=== PATIENT | female | born 1945 | race Two or more races ===

== ENCOUNTER 2018-04-11 07:20 | Inpatient (IN) | payer MEDICAID ==
[~2018-04-11] VITALS: Ht 154.9 cm; Wt 48.3 kg
[2018-04-11] MEDS ORDERED: NKM (07:44)
[2018-04-11 07:51] VITALS: BP 165/76
--- NOTE | 2018-04-11 07:54 | Emergency Room Report ---
History of Present Illness General Chief Complaint: Abdominal Pain Source: Patient, Family Member Present Illness HPI This patient is accompanied by her son. Patient has a history of vertigo. She has had several episodes of vertigo in the past year. The most recent of which was 2 weeks ago. The patient had onset of vertigo yesterday. Also, there was some abdominal pain yesterday. However, there is no abdominal pain today. The patient feels better if she lays flat and closes her eyes. She has been unable to eat or function for the past 24 hours. There is been no trauma. There is no fever or chills. There is no headache or neck pain. There is no chest pain or shortness of breath. She no longer has abdominal pain. She continues to have vertigo and vomiting. She denies recent illness. She denies cough or congestion. She denies ear pain. She has no other complaints. Allergies: Coded Allergies: PENICILLINS (Verified Allergy, Unknown, 04/11/18) Patient History Past Medical History: none Social History: Denies: smoking, alcohol use, drug use Reviewed Nursing Documentation: PMH: Agreed; PSxH: Agreed Nursing Documentation-PMH Past Medical History: No Stated History Review of Systems All Other Systems: negative except mentioned in HPI Physical Exam Vital Signs Date Time Temp Pulse Resp B/P (MAP) Pulse Ox O2 Delivery O2 Flow Rate FiO2 04/11/18 07:38 97.9 120 16 190/113 96 Room Air Sp02 EP Interpretation: reviewed, normal General Appearance: no apparent distress, alert, GCS 15, non-toxic, other - More comfortable and asymptomatic laying flat with eyes closed Head: normocephalic, atraumatic Eyes: bilateral eye normal inspection, bilateral eye PERRL ENT: hearing grossly normal, normal pharynx, no angioedema, normal voice Neck: full range of motion, supple/symm/no masses Respiratory: chest non-tender, lungs clear, normal breath sounds, no respiratory distress, no retraction, no accessory muscle use, speaking full sentences Cardiovascular #1: regular rate, rhythm, no edema Gastrointestinal: normal bowel sounds, non tender, soft, non-distended, no guarding, no rebound Rectal: deferred Musculoskeletal: back normal, normal range of motion, non-tender Neurologic: alert, oriented x3, responsive, motor strength/tone normal, sensory intact, speech normal, grossly normal Psychiatric: judgement/insight normal, memory normal, mood/affect normal, no suicidal/homicidal ideation Skin: normal color, no rash, warm/dry, well hydrated Medical Decision Making Diagnostic Impression: Primary Impression: Vertigo Additional Impressions: UTI (urinary tract infection) Intractable vomiting ER Course This patient has a physical exam at presentation consistent with benign positional vertigo. Other considerations include labyrinthitis, Mnire's disease, central vertigo. The patient's symptoms are short and episodic and have been positional. There are no central neurologic findings on physical exam which is very reassuring that this is not a posterior circulation stroke and I also obtained an MRI brain as a precaution given the patient's age and the recurrences that are occurring over the past month and this showed no e/o posterior circulation CVA. Laboratory workup, EKG are unremarkable. Given the patient is found to have a urinary tract infection and has had recurrent vomiting, I felt that this patient should be admitted for IV antibiotics and IV fluids and further control of her vertigo. The patient was given return precautions and followup instructions. Laboratory Tests Test 04/11/18 08:10 04/11/18 08:39 White Blood Count 6.2 K/UL (4.8-10.8) Red Blood Count 4.63 M/UL (4.20-5.40) Hemoglobin 13.6 G/DL (12.0-16.0) Hematocrit 40.3 % (37.0-47.0) Mean Corpuscular Volume 87 FL (80-99) Mean Corpuscular Hemoglobin 29.4 PG (27.0-31.0) Mean Corpuscular Hemoglobin Concent 33.8 G/DL (32.0-36.0) Red Cell Distribution Width 11.6 % (11.6-14.8) Platelet Count 208 K/UL (150-450) Mean Platelet Volume 7.4 FL (6.5-10.1) Neutrophils (%) (Auto) 79.7 % (45.0-75.0) H Lymphocytes (%) (Auto) 14.2 % (20.0-45.0) L Monocytes (%) (Auto) 5.2 % (1.0-10.0) Eosinophils (%) (Auto) 0.2 % (0.0-3.0) Basophils (%) (Auto) 0.7 % (0.0-2.0) Sodium Level 140 MMOL/L (136-145) Potassium Level 3.7 MMOL/L (3.5-5.1) Chloride Level 104 MMOL/L (98-107) Carbon Dioxide Level 27 MMOL/L (21-32) Anion Gap 9 mmol/L (5-15) Blood Urea Nitrogen 14 mg/dL (7-18) Creatinine 0.5 MG/DL (0.55-1.30) L Estimate Glomerular Filtration Rate mL/min (>60) Glucose Level 152 MG/DL (74-106) H Lactic Acid Level 1.00 mmol/L (0.4-2.0) Calcium Level 8.7 MG/DL (8.5-10.1) Total Bilirubin 0.2 MG/DL (0.2-1.0) Aspartate Amino Transferase (AST) 15 U/L (15-37) Alanine Aminotransferase (ALT) 17 U/L (12-78) Alkaline Phosphatase 62 U/L (46-116) Total Creatine Kinase 41 U/L (26-308) Creatine Kinase MB 0.6 NG/ML (0.0-3.6) Creatine Kinase MB Relative Index 1.4 Troponin I 0.004 ng/mL (0.000-0.056) Total Protein 7.2 G/DL (6.4-8.2) Albumin 3.5 G/DL (3.4-5.0) Globulin 3.7 g/dL Albumin/Globulin Ratio 0.9 (1.0-2.7) L Urine Color Pale yellow Urine Appearance Slightly cloudy Urine pH 6.5 (4.5-8.0) Urine Specific [place] 1.015 (1.005-1.035) Urine Protein 2+ (NEGATIVE) H Urine Glucose (UA) Negative (NEGATIVE) Urine Ketones Negative (NEGATIVE) Urine Blood 4+ (NEGATIVE) H Urine Nitrite Positive (NEGATIVE) H Urine Bilirubin Negative (NEGATIVE) Urine Urobilinogen Normal MG/DL (0.0-1.0) Urine Leukocyte Esterase 3+ (NEGATIVE) H Urine RBC 20-30 /HPF (0 - 2) H Urine WBC 40-60 /HPF (0 - 2) H Urine Squamous Epithelial Cells Few /LPF (NONE/OCC) Urine Bacteria Many /HPF (NONE) H EKG Diagnostic Results Rate: normal Rhythm: NSR ST Segments: no acute changes Rhythm Strip Diag. Results EP Interpretation: yes Rate: 80's Rhythm: NSR, no PVC's, no ectopy Chest X-Ray Diagnostic Results Chest X-Ray Diagnostic Results : Chest X-Ray Ordered: Yes # of Views/Limited/Complete: 1 View Indication: Other Interpretation: no consolidation, no effusion, no pneumothorax, no acute cardiopulmonary disease Impression: No acute disease Electronically Signed by: Fariha Urbina DO Last Vital Signs Date Time Temp Pulse Resp B/P (MAP) Pulse Ox O2 Delivery O2 Flow Rate FiO2 04/11/18 07:51 93 19 Room Air 04/11/18 07:38 97.9 190/113 96 Disposition: ADMITTED INPATIENT Condition: Serious Fariha Urbina DO Apr 11, 2018 07:54
[2018-04-11] MEDS ORDERED: Meclizine 25mg tab ORAL ONE (08:15)
--- NOTE | 2018-04-11 08:15 | NUR ---
ED Nurse Note: Pt. AAOx4. ambulatory. Came in with son due abd pain on lower quadrants and dizziness since Wednesday. Per son, pt c/o n/v with clear colored emesis. Last BM was today. Soft form stool. Skin is intact. 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
[2018-04-11 08:23] LABS: BASOPHILS % (AUTO) 0.7 % (0.0-2.0); EOSINOPHILS % (AUTO) 0.2 % (0.0-3.0); HEMATOCRIT 40.3 % (37.0-47.0); HEMOGLOBIN 13.6 G/DL (12.0-16.0); LYMPHOCYTES % (AUTO) 14.2 % (20.0-45.0); MEAN CORPUSCULAR VOLUME 87 FL (80-99); MONOCYTES % (AUTO) 5.2 % (1.0-10.0); NEUTROPHILS % (AUTO) 79.7 % (45.0-75.0); PLATELET COUNT 208 K/UL (150-450); RED BLOOD COUNT 4.63 M/UL (4.20-5.40); RED CELL DISTRIBUTION WIDTH 11.6 % (11.6-14.8); WHITE BLOOD COUNT 6.2 K/UL (4.8-10.8)
[2018-04-11 08:30] LABS: ANION GAP 9 mmol/L (5-15); BLOOD UREA NITROGEN 14 mg/dL (7-18); CALCIUM 8.7 MG/DL (8.5-10.1); CARBON DIOXIDE 27 MMOL/L (21-32); CHLORIDE 104 MMOL/L (98-107); CREATININE 0.5 MG/DL (0.55-1.30); POTASSIUM 3.7 MMOL/L (3.5-5.1); SODIUM 140 MMOL/L (136-145)
--- NOTE | 2018-04-11 08:32 | NUR ---
ED Nurse Note: Xray done at the [facility]
[2018-04-11 08:43] LABS: ALANINE AMINOTRANSFERASE 17 U/L (12-78); ALBUMIN 3.5 G/DL (3.4-5.0); ALBUMIN/GLOBULIN RATIO 0.9 (1.0-2.7); ALKALINE PHOSPHATASE 62 U/L (46-116); ASPARTATE AMINO TRANSFERASE 15 U/L (15-37); BILIRUBIN,TOTAL 0.2 MG/DL (0.2-1.0); CKMB 0.6 NG/ML (0.0-3.6); CREATINE KINASE 41 U/L (26-308)
[2018-04-11 08:52] LABS: APPEARANCE,URINE SLIGHTLY CLOUDY; BILIRUBIN, URINE NEGATIVE (NEGATIVE); COLOR,URINE PALE YELLOW; GLUCOSE, URINE (UA) NEGATIVE (NEGATIVE); KETONES,URINE NEGATIVE (NEGATIVE); LEUKOCYTE ESTERASE ,URINE 3+ (NEGATIVE); NITRITE,URINE POSITIVE (NEGATIVE); PH,URINE 6.5 (4.5-8.0); PROTEIN,URINE 2+ (NEGATIVE); UROBILINOGEN,URINE NORMAL MG/DL (0.0-1.0)
--- NOTE | 2018-04-11 09:04 | NUR ---
ED Nurse Note: pt.went down to MRI
[2018-04-11] MEDS ORDERED: cefTRIAXone 1 GM in NS 55 ML IVPB ONE (09:15)
--- NOTE | 2018-04-11 09:55 | NUR ---
ED Nurse Note: KACI RUDD CALLED PIETER TWICE, THE SON TO INFORM THAT THE DOCTOR NEEDS TO SPEAK WITH HIM
--- NOTE | 2018-04-11 09:58 | NUR ---
ED Nurse Note: PATIENT CAME BACK FROM MRI
[2018-04-11 10:09] VITALS: BP 131/96
--- NOTE | 2018-04-11 10:12 | NUR ---
ED Nurse Note: PATIENT IS CALM SLEEPING ON THE BED. VSS. NO SIGNS AND SYMPTOMS OF ACUTE DISSTRES.
--- NOTE | 2018-04-11 10:47 | Diagnostic Imaging Report ---
Indication: Dizziness vertigo Technique: The head was imaged in a 1.5 Ameena magnet. Sequences obtained include sagittal and axial T1 FLAIR, axial T2 fast spin echo with fat saturation, axial T2 FLAIR, diffusion and ADC map. Comparison: None Findings: There is mild prominence of the sulci, ventricles, and basal cisterns consistent with atrophy. Mild, nonspecific T2 hyperintensity noted within white matter. This may be due to chronic small vessel disease. There is no restricted diffusion. Jasmine-white differentiation is normal. There is no mass effect, midline shift, edema, or hemorrhage. There are no abnormal extra-axial or intra-axial fluid collections. The corpus callosum and sella are unremarkable. The brainstem and cerebellum are unremarkable. Bone marrow signal within the visualized osseous structures appears age appropriate and unremarkable otherwise. Impression: No acute intracranial findings. Mild atrophy and evidence of chronic small vessel disease involving white matter tracts.
--- NOTE | 2018-04-11 11:05 | NUR ---
ED Nurse Note: TELEPHONE REPORT WAS GIVEN TO KHADRA
--- NOTE | 2018-04-11 11:15 | NUR ---
ED Nurse Note: Patient was transfered to the med surg unit by [facility]. All belongings given to the patient with the belongings list, no s/s of acute disstres.
--- NOTE | 2018-04-11 11:44 | Diagnostic Imaging Report ---
Indication: Dyspnea Comparison: None A single view chest radiograph was obtained. Findings: Lungs are clear. The heart is borderline enlarged. Bones are osteopenic. Aorta is mildly calcified. IMPRESSION: No acute disease
--- NOTE | 2018-04-11 12:00 | NUR ---
NURSE NOTES: Patient received from KACI Abreu.Doctor notified patient is on the floor. Transferred from ER via gurney. Patient not in respiratory distress, peripheral iv G20 at right antecubital, patent, dry. Bed locked, in the lowest position, call light is within reach. Will continue to monitor patient.
[2018-04-11 12:15] VITALS: BP 149/77
[2018-04-11] MEDS ORDERED: Meclizine 25mg tab ORAL PRN (13:30)
[2018-04-11 16:00] VITALS: BP 144/76
--- NOTE | 2018-04-11 18:43 | History & Physical ---
History and Physical History & Physicial dictated #[id number] Papo Munoz MD Apr 11, 2018 18:43
--- NOTE | 2018-04-11 19:32 | NUR ---
HAND-OFF: Report given to KACI France.
--- NOTE | 2018-04-11 19:35 | NUR ---
NURSE NOTES: Received report from KACI Rabago. Patient A&Ox4, Yi speaking. On room air, IV intact, patent, and saline locked. Bed in lowest position with call light in reach. Will continue with plan of care.
[2018-04-11 20:00] VITALS: BP 139/77
--- NOTE | 2018-04-11 21:15 | History and Physical Report ---
DATE OF ADMISSION: 04/11/2018 REASON FOR ADMISSION: Vertigo. HISTORY OF PRESENT ILLNESS: This is a 72-year-old female with no past medical history, who presents to the emergency room with vertigo. She states that she had vertigo last night accompanied by nausea and vomiting once. She was unable to ambulate because of the vertigo. She expresses room spinning around her. She states that dizziness is worse with movements of her head. She denies any recent URIs or hearing loss. At this time, she has no nausea or vomiting. PAST MEDICAL HISTORY: None. PAST SURGICAL HISTORY: None. SOCIAL HISTORY: The patient does not drink alcohol, use any drugs, or smoke. ALLERGIES: She has allergies to penicillin and sulfa. REVIEW OF SYSTEMS: A 12-point review of systems was negative except for pertinent positives as mentioned above. PHYSICAL EXAMINATION: VITAL SIGNS: Temperature 98.1, pulse 80, respiratory rate 18, blood pressure 144/76, O2 saturation 97% on room air. GENERAL: No acute distress. The patient is alert, awake, and oriented x3. HEENT: Normocephalic/atraumatic. NECK: Supple. No JVD. LUNGS: Clear to auscultation bilaterally. No crackles, rhonchi, or rales. CARDIOVASCULAR: Regular rate and rhythm. Normal S1, S2. ABDOMEN: Soft, nontender, and nondistended. NEUROLOGIC: The patient does not have any nystagmus with Dyer-Hallpike maneuver. LABORATORY AND DIAGNOSTIC DATA: CBC, white count 6.2, hemoglobin 13.6, and platelet count 208. BMP, sodium 140, potassium 3.7, chloride 104, CO2 is 27, BUN 14, creatinine 0.5, glucose 152. LFTs are within normal limits. Troponin is 0.004. UA has 40 to 60 white cells, 20 to 30 rbc's 3+ leukocyte esterase, 2+ protein, positive nitrites. Chest x-ray shows no acute disease. Brain MRI shows no intracranial findings. ASSESSMENT: 1. Benign positional vertigo. 2. Urinary tract infection. PLAN: 1. Admit the patient to med/surg. 2. Neurologic consult. 3. Antibiotics-ceftriaxone. 4. Meclizine 25 mg p.o. t.i.d.. 5. IV fluids. 6. DVT prophylaxis with heparin. 7. Full Code. Papo MD Tammy DR: Chuy JOB#: [id number] CC:
--- NOTE | 2018-04-11 21:30 | Consultation ---
Consult Note Consult Note NEUROLOGY CONSULTATION: Full note dictated #[id number] 72 y/o, RH, HF with PH of episodic positional vertigo for the last year and elevated BP. She was hospitalized on 04/11/18 for vertigo, abdominal pain and feeling ill with N/V. She feels much better now. She has no vertigo, abdominal pain or N/V now. ON EXAM: Disoriented to exact date and name of hosp. 05/08-0, /3-1,3 Unable to remember presidents Math/VSF impaired. Few beats of left sided nystagmus associated with vertigo lasting ~ 5 sec when she was made to sit up. Could not be reproduced. IMPRESSION: 1. BPV 2. UTI with abdominal pain N & V. REC: Rx of UTI When better - Ramirez-Daroff exercises. Trino Garcia M.D., M.S.P.H. Trino Garcia MD Apr 11, 2018 21:30
[2018-04-11] MEDS: Heparin 5000 units/ml inj SUBQ SCH (22:01)
--- NOTE | 2018-04-11 23:00 | Consultation ---
DATE OF CONSULTATION: 04/11/2018 NEUROLOGY CONSULTATION CONSULTING PHYSICIAN: Trino Garcia M.D. REQUESTING PHYSICIANS: Papo Munoz M.D. & Patel Guadalupe M.D. HISTORY: Ms. Kristin Estes is a 72-year-old, right-handed, lady, who has a relatively benign past history other than episodic positional vertigo for the last year or so and episodic elevated blood pressures. She was functioning relatively well until recently when she started to have an episode of vertigo which lasted for a little longer than it usually does. She also developed abdominal pain, a feeling of being ill, had some nausea and vomiting. As a result of that, she was brought into the [facility] Emergency Room and has since been admitted. At this point in time, she feels much better. The vertigo has resolved. The abdominal pain is almost gone and the nausea and vomiting have resolved. With regards to her vertigo, she tells me that she has been having vertiginous episodes usually when she sits up from a lying down position. The vertigo usually lasts for a few seconds but on occasion has lasted for minutes. She has not noticed any change in her hearing and she also denies any pain in the ear or other symptoms. She also denies any other neurological symptoms including headache, weakness on one side or the other, numbness on one side or the other, problems with speech, problems with language, problems with vision. PAST MEDICAL HISTORY: Significant for episodic positional vertigo, episodic elevated blood pressure. FAMILY HISTORY: Nothing significant as per the patient. PERSONAL HISTORY: Home: She lives with family. Work: She is retired housewife. Habits: There is no history of alcohol, tobacco, or illicit drug use. PRESENT MEDICATIONS: Include meclizine, ceftriaxone, heparin for DVT prophylaxis, Tylenol. PHYSICAL EXAMINATION: GENERAL: She is a well-developed, well-nourished, pleasant lady, lying in bed, in no acute distress. VITAL SIGNS: Pulse 93/minute, blood pressure 165/76 mmHg, respirations 19/minute, temperature 97.9 degrees Fahrenheit. HEAD: Normocephalic and atraumatic. NECK: No neck rigidity was observed. EENT: Examination benign. NEUROLOGIC EXAMINATION: MENTAL STATUS EXAMINATION: She was awake and alert. She was oriented to self, hospital, and April 2018. She did not know the name of the hospital and exact date. She was able to recall 3/3 words immediately, but could only remember 2/3 words in 1 minute and 3 minutes. She was unable to tell me who the present President was and who prior presidents were. Her mathematical skills were impaired. Her visuospatial function was also impaired. It is unclear as to what education level is. SPEECH: She had no dysarthria. LANGUAGE: She had no aphasia. CRANIAL NERVE EXAMINATION: II: The visual milan were intact on confrontation testing. III, IV & : External ocular movements were full and the pupils 3 mm in diameter, equal, round, regular, and reactive to light. V: She had normal facial sensations, and the temporales, masseters, and pterygoids functioned normally. VII: She had normal facial expressions and no facial asymmetry. VIII: She was able to hear well bilaterally and had no nystagmus at rest. IX: The palate moved symmetrically on phonation. X: She had no hoarseness of voice. XI: The sternocleidomastoids and trapezii functioned normally. XII: The tongue was in the midline without any fasciculations or atrophy. MOTOR SYSTEM: The tone was normal in all four extremities. Examination of muscle mass revealed no focal wasting. Examination of power revealed G 5/5 power in all muscle groups tested. SENSORY EXAMINATION: She had intact sensations to pinprick, light touch, and graphesthesia. COORDINATION: She performed well on szvejn-vq-rwdd and zjdh-iy-txep testing. On Romberg test, she swayed, but did not fall to one side or the other. REFLEXES: 1+ and bilaterally symmetrical at the biceps, triceps, brachioradialis, and knees 0 at both ankles. The plantar responses were flexor bilaterally. STANCE: She stood up with support. GAIT: She walked well with support. When she was made to sit up from the lying down position, she felt a little vertiginous. She did have a few beats of left-sided nystagmus. The entire episode of vertigo lasted for approximately 5 seconds and resolved spontaneously. When the procedure was repeated, the vertigo and nystagmus could not be reproduced. DIAGNOSTIC IMPRESSION: 1. Ms. Kristin Estes is a 72-year-old, right-handed, lady, with an approximately one-year history of episodic vertigo and episodic blood pressure elevations. She was hospitalized for an episode of vertigo that lasted longer than it normally does in her case and in addition she also had some abdominal pain, nausea and vomiting associated with a feeling of being quite ill. Since she has been in the hospital, she feels much better. 2. On neurological examination, at this time, she is disoriented to the exact date and name of the hospital, has problems with recent and remote memory, visuospatial function, higher cognitive function, although it is unclear as to what education level is. She also has a few beats of left-sided nystagmus associated with vertigo lasting approximately 5 seconds when she was made to sit up. However this could not be reproduced. 3. Laboratory data obtained thus far have revealed relatively normal CBC. A chemistry panel with a blood glucose elevated at 152. Urinalysis which reveals 3+ leukocyte esterase, 20-30 red blood cells, and 40-60 white blood cells per high-power field with many urinary bacteria. 4. The patient has had an MRI scan of the brain performed which was benign. 5. The patient's history and neurological examination are most compatible with a syndrome of benign positional vertigo. The patient also has a urinary tract infection, at this point in time, which may have been the reason for abdominal pain, nausea and vomiting. RECOMMENDATIONS: 1. Agree with management thus far. 2. Treatment of UTI with appropriate antibiotics. 3. When the patient is better, she should be taught to perform Ramirez-Daroff exercises to help her with her benign positional vertigo. Thank you for entrusting me with the care of the patient. I shall follow her with you. Trino Garcia M.D., M.S.P.H. DR: Sudha JOB#: [id number] PELON
[2018-04-12] VITALS: BP 150/72
--- NOTE | 2018-04-12 01:23 | NUR ---
HAND-OFF: Report given to KACI Miller. Patient in stable condition, sleeping.
--- NOTE | 2018-04-12 01:24 | NUR ---
NURSE NOTES: Received report from Savita RN. Patient is in bed, asleep, no distress noted, call light is within reach, bed is locked, low and alarm is on. Will continue to monitor.
[2018-04-12 04:00] VITALS: BP 130/69
[2018-04-12 06:34] LABS: BASOPHILS % (AUTO) 1.5 % (0.0-2.0); EOSINOPHILS % (AUTO) 1.4 % (0.0-3.0); HEMATOCRIT 38.7 % (37.0-47.0); LYMPHOCYTES % (AUTO) 36.3 % (20.0-45.0); MEAN CORPUSCULAR VOLUME 88 FL (80-99); MONOCYTES % (AUTO) 7.8 % (1.0-10.0); PLATELET COUNT 216 K/UL (150-450); RED BLOOD COUNT 4.42 M/UL (4.20-5.40); RED CELL DISTRIBUTION WIDTH 12.1 % (11.6-14.8); WHITE BLOOD COUNT 4.9 K/UL (4.8-10.8)
[2018-04-12 06:39] LABS: ANION GAP 5 mmol/L (5-15); BLOOD UREA NITROGEN 9 mg/dL (7-18); CALCIUM 8.8 MG/DL (8.5-10.1); CARBON DIOXIDE 30 MMOL/L (21-32); CHLORIDE 107 MMOL/L (98-107); CREATININE 0.6 MG/DL (0.55-1.30); SODIUM 142 MMOL/L (136-145)
--- NOTE | 2018-04-12 07:29 | NUR ---
HAND-OFF: Report given to Dafne CLEMONS.
--- NOTE | 2018-04-12 07:47 | NUR ---
NURSE NOTES: Received report from KACI Miller. Rounding done with outgoing nurse. Patient a/o x4 and having breakfast. Denies any pain at this time. Bed in lowest position, call light within reach. Will continue to monitor.
[2018-04-12 08:00] VITALS: BP 142/76
[2018-04-12] MEDS: cefTRIAXone 1 GM in D5W 55 ML IVPB SCH (09:01)
[2018-04-12] MEDS: Heparin 5000 units/ml inj SUBQ SCH ×2 (09:02→21:50)
--- NOTE | 2018-04-12 10:57 | NUR ---
REHAB MED PT NOTE CONSULT RECEIVED, TERESA COMPLTED, PATIENT FAMILY PRESENT, SON STATES MOM IS FINE AND THAT PATIENT NEEDS NO ASSISTANCE WITH AMBULATION AND FEELS BETTER. NO SKILLED PT NEEDS. RECOMMEND OUTPATIENT PT FOR VERTIGO REHABILITATION. NO FURTHER NEEDS. CHARLOTTE BROWN PT DPT Addendum: 04/12/18 at 1057 by CHARLOTTE BROWN PT Amended: Links added.
[2018-04-12 12:00] VITALS: BP 135/70
--- NOTE | 2018-04-12 13:47 | Cardiology Report ---
APPROVED REPORT EKG Measurement Heart [id number] Normal sinus rhythm Normal ECG
[2018-04-12 16:00] VITALS: BP 139/73
[2018-04-12] MEDS ORDERED: NS 500ML ONE (17:05)
[2018-04-12] MEDS ORDERED: Tubing IV Secondary IV ONE (17:05)
--- NOTE | 2018-04-12 18:49 | NUR ---
CASE MANAGEMENT: REVIEW 72/F PRESENTED TO ED FROM HOME CC: ABD PAIN SI: PYELONEPHRITIS . INTRACTABLE VOMITING . VERTIGO T 97.9 HR 120 RR 16 BP 190/113 SAT 96% ROOM AIR UA: PROTEIN 2+ BLOOD 4+ NITRITE POSITIVE LEUKOCYTE ESTERASE 3+ STERLING MANY IS: ZOFRAN IV X1 NS IVF BOLUS X1 ANTIVERT PO X1 CEFTRIAXONE IV X1 PATIENT ADMITTED TO MED/SURG UNIT 04/11/2018 DCP: PATIENT IS FROM HOME
--- NOTE | 2018-04-12 19:37 | NUR ---
NURSE NOTES:Patient received slava FORREST R.N. patient in bed A/A/OX4. patient denies any pain at this time , no s/s of distress noted / LAC g# 20 H/L Patent and intact family at bed side. boom ( son) to call if patient to be discharge by tomorrow . call light within reach . bed in low position at all times . will continue to monitor .
--- NOTE | 2018-04-12 19:37 | NUR ---
HAND-OFF: Report given to SHIRA Londono.
[2018-04-12 20:00] VITALS: BP 119/65
--- NOTE | 2018-04-12 20:28 | Neurology Progress Note ---
Interim History Interim History Interim History Ms. Kevin Estes feels better. She has had no vertigo or dizziness today. She denies any new neurologic symptoms. She specifically denies any weakness, numbness, visual problems, language problems or memory problems. She says she ate well and had no nausea or vomiting. Review of Systems Neuro Review of Systems Benign. Objective Physical Exam Last Vital Signs Date Time Temp Pulse Resp B/P (MAP) Pulse Ox O2 Delivery O2 Flow Rate FiO2 04/12/18 16:00 97.3 77 18 139/73 (95) 100 04/12/18 09:00 Room Air Laboratory Tests Test 04/12/18 05:55 White Blood Count 4.9 K/UL (4.8-10.8) Red Blood Count 4.42 M/UL (4.20-5.40) Hemoglobin 13.0 G/DL (12.0-16.0) Hematocrit 38.7 % (37.0-47.0) Mean Corpuscular Volume 88 FL (80-99) Mean Corpuscular Hemoglobin 29.4 PG (27.0-31.0) Mean Corpuscular Hemoglobin Concent 33.6 G/DL (32.0-36.0) Red Cell Distribution Width 12.1 % (11.6-14.8) Platelet Count 216 K/UL (150-450) Mean Platelet Volume 7.6 FL (6.5-10.1) Neutrophils (%) (Auto) 53.0 % (45.0-75.0) Lymphocytes (%) (Auto) 36.3 % (20.0-45.0) Monocytes (%) (Auto) 7.8 % (1.0-10.0) Eosinophils (%) (Auto) 1.4 % (0.0-3.0) Basophils (%) (Auto) 1.5 % (0.0-2.0) Sodium Level 142 MMOL/L (136-145) Potassium Level 4.0 MMOL/L (3.5-5.1) Chloride Level 107 MMOL/L (98-107) Carbon Dioxide Level 30 MMOL/L (21-32) Anion Gap 5 mmol/L (5-15) Blood Urea Nitrogen 9 mg/dL (7-18) Creatinine 0.6 MG/DL (0.55-1.30) Estimat Glomerular Filtration Rate mL/min (>60) Glucose Level 106 MG/DL (74-106) Calcium Level 8.8 MG/DL (8.5-10.1) Neurologic Exam Objective PHYSICAL EXAMINATION: GENERAL: She is a well-developed, well-nourished, pleasant lady, lying in bed, in no acute distress. HEAD: Normocephalic and atraumatic. NECK: No neck rigidity was observed. EENT: Examination benign. NEUROLOGIC EXAMINATION: MENTAL STATUS EXAMINATION: She was awake and alert. She was oriented to self, hospital, and April 2018. She did not know the name of the hospital and exact date. She was able to recall 3/3 words immediately, but could only remember 2/3 words in 1 minute and 3 minutes. She was unable to tell me who the present President was and who prior presidents were. Her mathematical skills were impaired. Her visuospatial function was also impaired. It is unclear as to what education level is. SPEECH: She had no dysarthria. LANGUAGE: She had no aphasia. CRANIAL NERVE EXAMINATION: II: The visual milan were intact on confrontation testing. III, IV & : External ocular movements were full and the pupils 3 mm in diameter, equal, round, regular, and reactive to light. V: She had normal facial sensations, and the temporales, masseters, and pterygoids functioned normally. VII: She had normal facial expressions and no facial asymmetry. VIII: She was able to hear well bilaterally and had no nystagmus. IX: The palate moved symmetrically on phonation. X: She had no hoarseness of voice. XI: The sternocleidomastoids and trapezii functioned normally. XII: The tongue was in the midline without any fasciculations or atrophy. MOTOR SYSTEM: The tone was normal in all four extremities. Examination of muscle mass revealed no focal wasting. Examination of power revealed G 5/5 power in all muscle groups tested. SENSORY EXAMINATION: She had intact sensations to pinprick, light touch, and graphesthesia. COORDINATION: She performed well on [id number] and [id number]-[id number] testing. On Romberg test, she swayed, but did not fall to one side or the other. REFLEXES: 1+ and bilaterally symmetrical at the biceps, triceps, brachioradialis , and knees 0 at both ankles. The plantar responses were flexor bilaterally. STANCE: She stood up independently. GAIT: She walked well independently. Impression/Recommendations Diagnostic Impression 1. Ms. Kristin Estes is a 72-year-old, right-handed, lady , with an approximately one-year history of episodic vertigo and episodic blood pressure elevations. She was hospitalized for an episode of vertigo that lasted longer than it normally does in her case and in addition she also had some abdominal pain, nausea and vomiting associated with a feeling of being quite ill. Since she has been in the hospital, she feels much better. 2. She feels better. She has had no vertigo or dizziness today. She denies any new neurologic symptoms. She specifically denies any weakness, numbness, visual problems, language problems or memory problems. She says she ate well and had no nausea or vomiting. 3. On neurological examination, at this time, she is disoriented to the exact date and name of the hospital, has problems with recent and remote memory, visuospatial function, higher cognitive function, although it is unclear as to what education level is. She has no nystagmus or vertigo. 4. Laboratory data on my initial evaluation revealed relatively normal CBC. A chemistry panel with a blood glucose elevated at 152. Urinalysis which reveals 3+ leukocyte esterase, 20-30 red blood cells, and 40-60 white blood cells per high-power field with many urinary bacteria. 5. The patient has had an MRI scan of the brain performed which was benign. 6. The patient's history and neurological examination are most compatible with a syndrome of benign positional vertigo. The patient also has a urinary tract infection, at this point in time, which may have been the reason for abdominal pain, nausea and vomiting. Recommendations 1. Continue present management. 2. Treatment of UTI with appropriate antibiotics. 3. When the patient is better, she should be taught to perform Ramirez-Daroff exercises to help her with her benign positional vertigo. Trino Garcia M.D., M.S.P.H. Trino Garcia MD Apr 12, 2018 20:28
--- NOTE | 2018-04-12 22:11 | Internal Med Progress Note ---
Subjective Physician Name Papo Munoz Attending Physician Papo Munoz MD Current Medications Medications (Trade) Dose Ordered Sig/Natali Route PRN Reason Start Time Stop Time Status Last Admin Dose Admin Acetaminophen (Tylenol) 650 mg Q4H PRN ORAL Mild Pain (Pain Scale 1-3) 04/11/18 13:15 05/11/18 13:14 04/11/18 14:09 Ceftriaxone Sodium 1 gm/ Dextrose 55 ml @ 110 mls/hr DAILY IVPB 04/12/18 09:00 04/19/18 08:59 04/12/18 09:01 Dextrose (Dextrose 50%) 25 ml Q30M PRN IV Hypoglycemia 04/11/18 13:15 05/11/18 13:14 Dextrose (Dextrose 50%) 50 ml Q30M PRN IV Hypoglycemia 04/11/18 13:15 05/11/18 13:14 Heparin Sodium (Porcine) (Heparin 5000 units/ml) 5,000 units EVERY 12 HOURS SUBQ 04/11/18 21:00 05/11/18 20:59 04/12/18 21:50 Meclizine HCl (Antivert) 25 mg TID ORAL 04/14/18 18:00 05/14/18 17:59 Allergies: Coded Allergies: PENICILLINS (Verified Allergy, Unknown, 04/11/18) All Systems: reviewed and negative except above - vertigo Objective Last Vital Signs Date Time Temp Pulse Resp B/P (MAP) Pulse Ox O2 Delivery O2 Flow Rate FiO2 04/12/18 20:51 Room Air 04/12/18 20:00 98.2 78 18 119/65 (83) 95 Laboratory Tests Test 04/12/18 05:55 White Blood Count 4.9 K/UL (4.8-10.8) Red Blood Count 4.42 M/UL (4.20-5.40) Hemoglobin 13.0 G/DL (12.0-16.0) Hematocrit 38.7 % (37.0-47.0) Mean Corpuscular Volume 88 FL (80-99) Mean Corpuscular Hemoglobin 29.4 PG (27.0-31.0) Mean Corpuscular Hemoglobin Concent 33.6 G/DL (32.0-36.0) Red Cell Distribution Width 12.1 % (11.6-14.8) Platelet Count 216 K/UL (150-450) Mean Platelet Volume 7.6 FL (6.5-10.1) Neutrophils (%) (Auto) 53.0 % (45.0-75.0) Lymphocytes (%) (Auto) 36.3 % (20.0-45.0) Monocytes (%) (Auto) 7.8 % (1.0-10.0) Eosinophils (%) (Auto) 1.4 % (0.0-3.0) Basophils (%) (Auto) 1.5 % (0.0-2.0) Sodium Level 142 MMOL/L (136-145) Potassium Level 4.0 MMOL/L (3.5-5.1) Chloride Level 107 MMOL/L (98-107) Carbon Dioxide Level 30 MMOL/L (21-32) Anion Gap 5 mmol/L (5-15) Blood Urea Nitrogen 9 mg/dL (7-18) Creatinine 0.6 MG/DL (0.55-1.30) Estimat Glomerular Filtration Rate mL/min (>60) Glucose Level 106 MG/DL (74-106) Calcium Level 8.8 MG/DL (8.5-10.1) Microbiology Date/Time Source Procedure Growth Status 04/11/18 08:00 Blood Blood Culture - Preliminary Resulted 04/11/18 08:39 Urine,Clean Catch Urine Culture - Preliminary Gram Negative Bacillus 1 Resulted Intake and Output 04/11/18 04/12/18 18:59 06:59 Intake Total 640 ml 240 ml Output Total 0 ml Balance 640 ml 240 ml Intake Oral 640 ml Other 240 ml Output Urine Total 0 ml # Bowel Movements 1 Objective GENERAL: No acute distress. The patient is alert, awake, and oriented x3. HEENT: Normocephalic/atraumatic. NECK: Supple. No JVD. LUNGS: Clear to auscultation bilaterally. No crackles, rhonchi, or rales. CARDIOVASCULAR: Regular rate and rhythm. Normal S1, S2. ABDOMEN: Soft, nontender, and nondistended. NEUROLOGIC: The patient does not have any nystagmus with Jerrica-Hallpike maneuver. Assessment/Plan Assessment/Plan ASSESSMENT: 1. Benign positional vertigo. 2. Urinary tract infection. PLAN: 1. med/surg. 2. Neurologic consult. 3. Antibiotics-ceftriaxone. 4. Meclizine 25 mg p.o. t.i.d.. 5. IV fluids. 6. DVT prophylaxis with heparin. 7. Full Code. Papo Munoz MD Apr 12, 2018 22:11
[2018-04-13] VITALS: BP 134/69
[2018-04-13 04:00] VITALS: BP 112/65
[2018-04-13 08:00] VITALS: BP 115/60
--- NOTE | 2018-04-13 08:06 | NUR ---
Received patient from [facility], patient is resting in bed, no distress noted, bed is locked and in lowest position, call light within reach, will continue to monitor.
[2018-04-13] MEDS: cefTRIAXone 1 GM in D5W 55 ML IVPB SCH (09:27)
[2018-04-13] MEDS: Heparin 5000 units/ml inj SUBQ SCH (09:52)
[2018-04-13 12:00] VITALS: BP 114/76
--- NOTE | 2018-04-13 12:06 | Discharge Summary ---
Discharge Summary Hospital Course Date of Admission Apr 11, 2018 at 09:27 Date of Discharge Admitting Diagnosis pyelonephritis, intractable vomiting, vertigo HPI Kely Estes is a 72 year old female who was admitted on Apr 11, 2018 at 09:27 for UTI and Vertigo. Started on Meclizine TID and Ceftriaxone for Vertigo and UTI respectively. Seen by Neuro (Dr. Garcia). MRI brain unrevealing Stable for dc now (no vertigo). Discharge Medications New Medications: Cephalexin* (Keflex*) 500 Mg Capsule 500 MG ORAL EVERY 12 HOURS, #6 CAP 0 Refills Meclizine Hcl* (Meclizine*) 25 Mg Tablet 25 MG ORAL TID for 10 Days, #30 TAB Discontinued Medications: No Known Medications* (NKM - No Known Medications*) . 0 ., 0 Refills Discharge Condition Upon Discharge: stable Discharge Disposition Patient was discharged to HOME Discharge Diagnoses: (1) UTI (urinary tract infection) (2) Vertigo Papo Munoz MD Apr 13, 2018 12:06
[2018-04-13] MEDS ORDERED: CEPHALEXIN500 MG ORAL (12:07)
[2018-04-13] MEDS ORDERED: MECLIZINE HCL25 MG ORAL (12:07)
[2018-04-13 16:00] VITALS: BP 125/67
--- NOTE | 2018-04-13 17:27 | Neurology Progress Note ---
Interim History Interim History Interim History Ms. Kevin Estes feels much better. She has had no vertigo or dizziness. She denies any new neurologic symptoms. She specifically denies any weakness, numbness, visual problems, language problems or memory problems. She says she ate well and had no nausea or vomiting. As per her daughter she is back to her normal self. Review of Systems Neuro Review of Systems Benign. Objective Physical Exam Last Vital Signs Date Time Temp Pulse Resp B/P (MAP) Pulse Ox O2 Delivery O2 Flow Rate FiO2 04/13/18 16:00 97.4 71 20 125/67 (86) 99 04/13/18 09:00 Room Air Neurologic Exam Objective PHYSICAL EXAMINATION: GENERAL: She is a well-developed, well-nourished, pleasant lady, lying in bed, in no acute distress. HEAD: Normocephalic and atraumatic. NECK: No neck rigidity was observed. EENT: Examination benign. NEUROLOGIC EXAMINATION: MENTAL STATUS EXAMINATION: She was awake and alert. She was oriented to self, hospital, and April 2018. She did not know the name of the hospital and exact date. She was able to recall 3/3 words immediately, but could only remember 2/3 words in 1 minute and 3 minutes. She was unable to tell me who the present President was and who prior presidents were. Her mathematical skills were impaired. Her visuospatial function was also impaired. It is unclear as to what education level is. SPEECH: She had no dysarthria. LANGUAGE: She had no aphasia. CRANIAL NERVE EXAMINATION: II: The visual milan were intact on confrontation testing. III, IV & : External ocular movements were full and the pupils 3 mm in diameter, equal, round, regular, and reactive to light. V: She had normal facial sensations, and the temporales, masseters, and pterygoids functioned normally. VII: She had normal facial expressions and no facial asymmetry. VIII: She was able to hear well bilaterally and had no nystagmus. IX: The palate moved symmetrically on phonation. X: She had no hoarseness of voice. XI: The sternocleidomastoids and trapezii functioned normally. XII: The tongue was in the midline without any fasciculations or atrophy. MOTOR SYSTEM: The tone was normal in all four extremities. Examination of muscle mass revealed no focal wasting. Examination of power revealed G 5/5 power in all muscle groups tested. SENSORY EXAMINATION: She had intact sensations to pinprick, light touch, and graphesthesia. COORDINATION: She performed well on [id number]-[id number] and [id number] testing. On Romberg test, she swayed, but did not fall to one side or the other. REFLEXES: 1+ and bilaterally symmetrical at the biceps, triceps, brachioradialis , and knees 0 at both ankles. The plantar responses were flexor bilaterally. STANCE: She stood up independently. GAIT: She walked well independently. Impression/Recommendations Diagnostic Impression 1. Ms. Kristin Estes is a 72-year-old, right-handed, lady , with an approximately one-year history of episodic vertigo and episodic blood pressure elevations. She was hospitalized for an episode of vertigo that lasted longer than it normally does in her case and in addition she also had some abdominal pain, nausea and vomiting associated with a feeling of being quite ill. Since she has been in the hospital, she feels much better. 2. She feels feels much better. She has had no vertigo or dizziness. She denies any new neurologic symptoms. She specifically denies any weakness, numbness, visual problems, language problems or memory problems. She says she ate well and had no nausea or vomiting. As per her daughter she is back to her normal self. 3. On neurological examination, at this time, she is disoriented to the exact date and name of the hospital, has problems with recent and remote memory, visuospatial function, higher cognitive function, although it is unclear as to what education level is. She has no nystagmus or vertigo. 4. Laboratory data on my initial evaluation revealed relatively normal CBC. A chemistry panel with a blood glucose elevated at 152. Urinalysis which reveals 3+ leukocyte esterase, 20-30 red blood cells, and 40-60 white blood cells per high-power field with many urinary bacteria. 5. The patient has had an MRI scan of the brain performed which was benign. 6. The patient's history and neurological examination are most compatible with a syndrome of benign positional vertigo. The patient also has a urinary tract infection, at this point in time, which may have been the reason for abdominal pain, nausea and vomiting. 7. She feels very well today and is asymptomatic. Recommendations 1. Continue present management. 2. She was taught to perform Ramirez-Daroff exercises to help her with her benign positional vertigo. 3. Agree with discharge home. Trino Garcia M.D., M.S.P.H. Trino Garcia MD Apr 13, 2018 17:27
--- NOTE | 2018-04-13 17:33 | NUR ---
NURSE NOTES: Patient discharged per doctor's order.Discharge instructions reviewed, given to the patient,no discrepancy noted. Patient's belongings checked gven to the patient. IV and ID bands removed. Patient escorted to the lobby with daughter in law and RN.
[2018-04-14] MEDS ORDERED: Meclizine 25mg tab ORAL SCH (18:00)
== END 2018-04-13 17:50 | disposition home or self-care (01) | DRG 111 ==
LOC: EMR 08:26 → 4E 09:27 → EDBEDREQ 09:51
DX: H81.10 Benign paroxysmal vertigo, unspecified ear (principal); N39.0 Urinary tract infection, site not specified; Z88.0 Allergy status to penicillin; Z88.2 Allergy status to sulfonamides
CPT/HCPCS: 36415; 70551; 71045; 80048; 80053; 81003; 82550; 82553; 83605; 84484; 85025; 87040; 87086; 87181; 93005; 96361; 96365; 96375; 99285; J2405